=== PATIENT | female | born 1995 | race Caucasian/White ===

== ENCOUNTER 2017-06-07 19:01 | Outpatient (CLI) | payer SELFPAY ==
[2017-06-07] MEDS ORDERED: LR(*) 1000 ML BAG 1,000 ML IV PRN (19:45)
[2017-06-07 19:58] LABS: PLATELET COUNT, AUTOMATED 192 K/uL (150-450)
[2017-06-07] MEDS ORDERED: ONDANSETRON 4 MG/2 ML VIAL IVP PRN (20:05)
[2017-06-07] MEDS ORDERED: PROMETHAZINE 25 MG/ML 1 ML AMP IV PRN (20:05)
--- NOTE | 2017-06-07 20:05 | History & Physical ---
History of Present Illness Age of Patient: 21 : 1 Para or TPAL: 0 EDC per LMP: Oct 07, 2017 EDC per U/S: Oct 07, 2017 Estimated Gestational Age: 22.6 Chief Complaint lower abdominal pain, nausea and emesis History of Present Illness Ms. Noble is a 21yo at 22.6/7 weeks be reported LMP of 10/07/2017. She lives in [place], traveling through [place], and does not have records here. She reports having received care in [place], was last seen this month, and reports that her thus far has been healthy. She reports that she is having a baby boy. She states that she was feeling well until approximately 2pm when she started to notice lower abdominal pain and pelvic pressure. She denies LOF or increased discharge. Denies vaginal bleeding. She denies fevers/ chills, however reports gets hot and then cold and then hot. Endorses nausea and emesis x 2. Reports that her family in [place] has a stomach virus and that her SO Tarik has also been sick. Endorses urinary frequency and dysuria. She reports that she has not felt significant movement yet during this . She denies any unusual activity today, denies abdominal trauma. History is significant for tobacco abuse. 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 Reports tobacco use, denies other substances. Reports that her family of origin is "crazy." Review of Systems Constitutional: No Fever, No Weight Loss, No Weight Gain, No Chills, No Night Sweats, No Other Neurological: No Syncope, No Confusion, No Weakness, No Dizziness, No Slurred Speech, No Other Eyes: No Vision Change, No Loss of Vision, No Photophobia, No Other ENT: No Hearing Loss, No Sinus Congestion, No Sore Throat, No Ear Ache, No Tinnitus, No Other Cardiovascular: No Chest Pain, No Palpitations, No Orthostatic Hypotension, No Other Respiratory: No Shortness of Breath, No Cough, No Wheezing, No Other Gastrointestinal: Nausea, Vomiting, No Diarrhea, No Dysphagia, No Constipation , No Early Satiety, No Hematemesis, No Hematochezia, No Melena, Abdominal Pain, No Other Genitourinary: Dysuria, No Hematuria, No Urinary Incontinence, No Other Musculoskeletal: No Pain, No Sprain, No Strain, No Impaired Mobility, No Other Psychiatric: No Depression, No Anxiety, No Other Exam General Exam Vital Signs 98.1 114/62 81 16 93%RA General Apperance: Alert/Awake/No Acute Distress (does not meet eye contact easily) Neuro: No Gross deficits Eyes: Normal Extraocular Movement & Vison Cardiovascular: Regular Rate and Rhythm Respiratory: Clear to Auscultation Abdomen: Soft, Non-Tender, Non-Distended, Gravid - Non-Tender Extremities: No Cyanosis,Clubbing or Edema Integumentary: Skin Intact without Lesions or Rash Psychological: Alert & Oriented X3, Appropriate Mood & Affect (seems withdrawn) Cervical Effacement (%): 0 (4.1cm by ultrasound) Presentation: Vertex Uterine Contractions(Q min): 0 (iritability) Fetus Feeling Movement?: Yes Estimated Weight(grams): 622 (ultraound) Heart Tones: 136 (ULTRASOUND) Medical Decision Making Data Points Result Diagram: 06/07/17184506/07/171845 Imaging Ultrasound/Imaging bedside ultrasound: cephalic presentation HR 136 EFW 622g JUJU 17.7cm CL: 4.1cm, 3.9 with valsalva Pre-Admit Course Medical Record Review: No (not available) VTE Prophylasis: Adult Deep Vein Thrombosis/Pulmonary: No Pharmacological Contraindicati: Surgical Contraindication Mechanical Contraindications: Pt at Low Risk for VTE Assessment and Plan Problems: (1) Abdominal pain affecting , antepartum Status: Acute Assessment & Plan: 21yo at 22 6/7 weeks by reported LMP presents with abdominal pain, nausea/emesis and dysuria. Recent sick contacts -- family in [place] has stomach virus. testing reassuring, cervical length 4.1cm. Uterine irritability improved with IV hydration. Symptoms improved with zofran. Will allow discharge home with zofran take home pack. Patient has plans for f/u in [place] with her routine provider. BERTRAND DIANE MD Jun 07, 2017 20:05
[2017-06-07] MEDS ORDERED: ONDANSETRON 4 MG ODT TH SL ONE (21:25)
--- NOTE | 2017-06-07 21:31 | OB/GYN Discharge Summary ---
Discharge Summary Reason for Hosp/Final Diag: (1) Abdominal pain affecting , antepartum Status: Acute Hospital Course & Plan: 21yo at 22 6/7 weeks by reported LMP presents with abdominal pain, nausea/emesis and dysuria. Recent sick contacts -- family in [place] has stomach virus. testing reassuring, cervical length 4.1cm. Uterine irritability improved with IV hydration. Symptoms improved with zofran. Will allow discharge home with zofran take home pack. Patient has plans for f/u in [place] with her routine provider. Result Diagram: 06/07/17 1846 06/07/171845 Condition: Improved Discharge: Home Follow up in: Keep scheduled appoint Discharge Diet: As Tolerates Discharge Activity: As Tolerates Special Instructions: Stay hydrated. BERTRAND DIANE MD Jun 07, 2017 21:31
--- NOTE | 2017-06-07 21:36 | RADIOLOGY IMAGING REPORT ---
FACILITY: [facility] PATIENT NAME: Ryanne Noble : 1995 MR: [id number] V: [id number] EXAM DATE: ORDERING PHYSICIAN: BERTRAND DIANE TECHNOLOGIST: Location: [facility] [place] Patient: Ryanne Noble : 1995 Visit/Account:[id number] Date of Sevice: 06/07/2017 EXAMINATION: Limited Transabdominal and transvaginal OB Ultrasound HISTORY: Abdominal pain. EFW, JUJU, placental location, cervical length Gestational age: 22 weeks and 4 days based on a reported JOSY of 10/07/2017. LMP(c): 12/31/2016. COMPARISON: None. FINDINGS: Intrauterine gestations: one presentation: Vertex heart rate: 136 bpm Amniotic fluid index: 17.7 cm Largest amniotic fluid pocket 5.6 cm Placenta: Anterior without previa. No ultrasound evidence of abruption. Uterus: gravid, otherwise normal Cervix: Transvaginal imaging of the cervix was performed. The cervix is closed and long. Cervical taya gth measures 4.0 cm. No funneling or endocervical fluid. No placenta previa or vasa previa. Gestational Parameters: BPD: 5.91 cm, 24 weeks 2 days HC: 21.91 cm, 24 weeks 0 days AC: 18.91 cm, 23 weeks 5 days FL: 4.20 cm, 23 weeks 5 days Average ultrasound age (AUA): 24 weeks 0 days Estimated weight (EFW): 622 grams +/- 91 grams EFW for LMP: 92nd percentile Anatomic Survey: anatomy was not evaluated. Umbilical artery Doppler evaluation: Umbilical artery #1: Normal systolic upstroke without diastolic notching. RI = 0.73 (normal less than or equal 0.7) S/D = 3.7 (normal 24-27 weeks less than or equal 4.0) (normal > 28 weeks less than or equal 3.0) Umbilical artery #2: Normal systolic upstroke without diastolic notching. RI = 0.69 (normal less than or equal 0.7) S/D = 3.2 (normal 24-27 weeks less than or equal 4.0) (normal > 28 weeks less than or equal 3.0) IMPRESSION: 1. Single live intrauterine gestation in cephalic presentation. 2. Average ultrasound age 24 weeks and 0 days. This measures 1 week and 3 days larger than the repor nithya gestational age. 3. JUJU 17.7 cm. 4. Anterior placenta, with an unremarkable ultrasound appearance. No previa or ultrasound evidence of abruption. 5. The cervix is closed and long; cervical length 4.0 cm. 6. Umbilical artery Doppler evaluation was performed. S/D ratios are within normal limits for gestati onal age. Borderline elevated resistive indices. Routine follow-up could be performed as indicated. Report Dictated By: Denver Diane MD at 06/07/2017 9:22 PM Report E-Signed By: Denver Diane MD at 06/07/2017 9:32 PM WSN:[id number]
== END 2017-06-07 21:50 | disposition home or self-care (01) ==
LOC: L&D 19:01 → UNDOADMOB 19:01 → OB 19:01 → INTOOBSV 19:01 → OB 19:01 → L&D 21:50 → UNDODISOB 21:50 → EDSTATUS 06-09 11:29
PROVIDERS: ATTEND Obstetrics & Gynecology
DX: O26.892 Other specified pregnancy related conditions, second trimester (principal); Z3A.22 22 weeks gestation of pregnancy; Z87.891 Personal history of nicotine dependence; R11.2 Nausea with vomiting, unspecified; R35.0 Frequency of micturition; R30.0 Dysuria
CPT/HCPCS: 76817; 80305; 81001; 85025; 87491; 87591; 99213; J2405; J7120; 82040; 82247; 82310; 82374; 82435; 82565; 82947; 84075; 84132; 84155; 84295; 84450; 84460; 84520

== ENCOUNTER → 2017-06-07 | Emergency (ER) | payer SELFPAY | LOC: ER 18:41 | DX: Z02.9 Encounter for administrative examinations, unspecified (principal) ==